=== PATIENT | male | born 1995 | race Caucasian/White ===

== ENCOUNTER 2025-09-06 17:50 | Emergency (ER) | payer MEDICAID, SELFPAY ==
[2025-09-06 17:54] VITALS: BP 158/103; PULSE 97; RESP 18; TEMP 36.1; O2SAT 100; BMI 26.5
--- NOTE | 2025-09-06 17:59 | EKG12_ITS ---
Test Reason : ELECTRICAL SHOCK Blood Pressure : */* mmHG Vent. Rate : 91 BPM Atrial Rate : 91 BPM P-R Int : 142 ms QRS Dur : 88 ms QT Int : 350 ms P-R-T Axes : 74 -4 38 degrees QTcB Int : 430 ms Normal sinus rhythm Normal ECG Confirmed by DAYANA OLIVEROS, BENJI ([id number]), supervising film or videotape editor ADIS GARCIA ([id number]) on 09/10/2025 8:30:43 AM Referred By: Confirmed By: BENJI ANNE MD
--- NOTE | 2025-09-06 18:07 | EDS_ITS ---
HPI History of Present Illness Chief Complaint: Burn Narrative Narrative: Patient is a 30-year-old male who presents to the emergency department with a chief complaint of wanting a medical screening exam as earlier today around 10 AM he was shocked by a wire he states that it may have been 4 and 80 V it could have been 120 or 24 he is not exactly sure he states that the energy could have jumped from the wire into his arm as well. He states that he has some left elbow pain but he thinks that he may be making this PT states that he went to come here just to be sure he is okay. He states that he has a appointment with cardiology and when inquiring why he is following up with them he states that he may have intermittent atrial fibrillation based on his [employer] watch but he is not sure or either. PFSH PFSH Allergy/AdvReac Type Severity Reaction Status Date / Time No Known Allergies Allergy Verified 09/06/25 17:51 ROS ROS ED ROS Narrative Constitutional: Denies any headache, lightness, dizziness, fevers, chills Eyes: Denies double vision Cardiovascular: Denies chest pain Respiratory: Denies coughing wheezing shortness of breath Abdomen: Denies abdominal pain nausea vomit diarrhea : Denies any urinary symptoms Neurological: Denies any numbness, recent tingling Musculoskeletal: Denies back pain Skin: Denies any rashes or lesions EXAM Physical Exam Narrative Exam Narrative: General: Patient is lying in bed rest comfortably did not appear to be in acute distress Head: Atraumatic, normocephalic Eyes: PERRL bilaterally, EOMI bilateral, no conjunctival injection noted Neck: Soft, supple, trachea midline Cardiovascular: Regular rate and rhythm Respiratory: Clear to auscultation bilaterally Abdomen: No tenderness to palpation Musculoskeletal: Compartments soft and compressible of the left upper extremity Extremities: Radial pulses +2/4 in the left upper extremity, +5/5 strength noted in the bilateral upper and lower extremities Neurological: Patient followed commands and that he was at [facility] years 2024 Skin: Warm, dry, intact no rashes or lesions noted Const Vital Signs: 09/06/25 17:54 Temperature 97 F L Temperature Source Temporal Pulse Rate 97 Respiratory Rate 18 Blood Pressure 158/103 H Blood Pressure Mean 121 Pulse Ox 100 Oxygen Delivery Method Room Air MDM MDM MDM Narrative Medical decision making narrative: Patient is a 30-year-old male who presents to the emergency department concern for electrocution at 10 AM earlier this morning while work. On the differential diagnose includes but not limited to cardiac arrhythmia, electrocution. Patient is EKG reviewed showed sinus rhythm with a MO interval normal at 142 with a rate of 91 bpm. Discussed results with the patient and he would like to go home at this point time. He is vies to follow-up his doctors outpatient setting and return with worsening symptoms or other concerns. All question concerns answered is discharged home in stable condition patient is agreeable to this plan. Discharge Plan Triage Chief Complaint: Burn ED Provider: Eric Abdul Dx/Rx/DC Orders Clinical Impression: Electrocution, Arm pain, left Activity Restrictions/Additional Instructions: Your EKG here was normal today. Follow-up with your doctors outpatient setting. Return with worsening symptoms or any concerns Print Language: Burundian Disposition Disposition: Home, Self Care
[2025-09-06 18:15] VITALS: BP 148/88; PULSE 97; RESP 18; TEMP 36.6; O2SAT 100
== END 2025-09-06 18:28 | disposition home or self-care (01) ==
LOC: ED 18:28
PROVIDERS: Emergency Provider Emergency Medicine; Visit Provider Emergency Medicine
DX: T75.4XXA Electrocution, initial encounter (principal); M79.602 Pain in left arm; W86.8XXA Exposure to other electric current, initial encounter; Y99.0 Civilian activity done for income or pay; Y92.89 Other specified places as the place of occurrence of the external cause
CPT/HCPCS: 93005; 99282